=== PATIENT | female | born 1955 | race African-American/Black ===

== ENCOUNTER 2024-09-20 17:41 | Emergency (ER) | payer OTHER, MEDICARE ==
[~2024-09-20] VITALS: Ht 157.5 cm; Wt 130.0 kg
[2024-09-20 17:46] VITALS: O2SAT 99
[2024-09-20] MEDS: SODIUM CHLORIDE 0.9% 1,000 ML IV ONE (18:18)
[2024-09-20 18:31] VITALS: TEMP 37.16964
[2024-09-20 20:15] LABS: BASOPHILS % 0.3 % (0.0-2.0); DIFFERENTIAL COMMENT 0; EOSINOPHILS % 0.2 % (0.0-5.0); HEMATOCRIT. 24.3 % (36.0-48.0); HEMOGLOBIN. 7.9 g/dL (12.0-16.0); LYMPHOCYTES % 7.3 % (20.0-50.0); MEAN CORPUSCULAR HEMOGLOBIN 25.3 pg (28.0-32.0); MEAN CORPUSCULAR HGB CONC 32.5 g/dL (31.0-37.0); MEAN CORPUSCULAR VOLUME 77.9 fL (81.0-99.0); MEAN PLATELET VOLUME 7.2 fl (7.4-10.4); MONOCYTES % 8.6 % (2.0-8.0); NEUTROPHILS % 83.6 % (40.0-76.0); PLATELET 549 x1000/uL (130-400); RED BLOOD CELL COUNT 3.12 mill/uL (4.2-5.4); RED CELL DISTRIBUTION WIDTH 18.9 % (11.6-14.6); WHITE BLOOD COUNT 10.3 x1000/uL (4.5-11.0)
[2024-09-20 20:20] LABS: CHLORIDE 107 mEq/L (98-107); POTASSIUM 3.9 mEq/L (3.5-5.1); SODIUM 140 mEq/L (136-145)
[2024-09-20 20:21] LABS: CARBON DIOXIDE 26 mEq/L (21-32)
[2024-09-20 20:27] LABS: GLUCOSE 96 mg/dL (70-105); TROPONIN I HIGH SENSITIVITY 13 ng/L (3.0-34); UREA NITROGEN BLOOD 19 mg/dL (9-23)
[2024-09-20 20:28] LABS: ETHANOL BLOOD < 10 mg/dL (<10)
[2024-09-20 22:15] VITALS: BP 145/76; PULSE 89; RESP 15; O2SAT 96
== END 2024-09-20 22:36 | disposition short-term general hospital (02) ==
LOC: ER 17:41 → EDBEDREQTM 21:13 → EDBEDREQ 21:13 → ER 22:36
DX: R42 Dizziness and giddiness (principal); D64.9 Anemia, unspecified; R11.2 Nausea with vomiting, unspecified
CPT/HCPCS: 80048; 80320; 83880; 85025; 84484; 36415; 71045; 93005; 99285; J7030; G0480